=== PATIENT | female | born 1940 | race African-American/Black ===

== ENCOUNTER 2017-02-10 12:38 | Emergency (ER) | payer MEDICARE ==
[2017-02-10] MEDS ORDERED: NS 0.9% 1000 ML* 1,000 ML IV ONE (14:51)
[2017-02-10] MEDS ORDERED: HYDROcodone/ACETAMIN 5-325 MG* 1 TAB PO ONE ×2 (14:52→17:36)
--- NOTE | 2017-02-10 15:17 | RAD ---
INDICATION: Headaches COMPARISON: None TECHNIQUE: Noncontrast axial source images were acquired from the skull base to the vertex. FINDINGS: Ventricles/sulci: The ventricles and cisterns are normal in size and configuration for age. Brain parenchyma: There is no significant focal parenchymal finding, evidence of intracranial mass, or intracranial mass effect. Intracranial hemorrhage:None. Extra-axial spaces: There are no abnormal extra axial fluid collections or evidence of extra-axial mass. Calvarium: There is no calvarial fracture or other calvarial abnormality. Scalp: There is no evidence of scalp or extracalvarial soft tissue abnormality. Paranasal sinuses/mastoid: The paranasal sinuses and mastoid air cells are clear. Other: None. IMPRESSION: No acute intracranial findings.
[2017-02-10 15:34] LABS: Hematocrit 42 % (35-47); Hemoglobin 13.7 g/dl (12.0-16.0); Mean Corpuscular HGB Conc 33 g/dl (31-36); Mean Corpuscular Hemoglobin 26 pg (27-31); Mean Corpuscular Volume 79 fL (80-97); Mean Platelet Volume 10 um3 (7.4-10.4); Red Blood Count 5.32 10^6/ul (4.0-5.4); Red Cell Distribution Width 17 % (10.5-15); White Blood Count 9.4 10^3/ul (3.5-10.8)
[2017-02-10 15:49] LABS: Albumin 4.2 g/dL (3.2-5.2); BUN/Creatinine Ratio 18.3 (8-20); Calcium 9.2 mg/dL (8.6-10.3); EGFR African American 87.6 (>60); EGFR Non-African American 68.1 (>60); Globulin 3.2 g/dL (2-4); Total Bilirubin 0.6 mg/dL (0.2-1.0); Total Protein 7.4 g/dL (6.4-8.9)
[2017-02-10 16:11] LABS: Potassium 4.5 mmol/L (3.5-5.0)
[2017-02-10 16:20] LABS: Erythrocyte Sed Rate 24 mm/Hr (0-40)
[2017-02-10 17:44] LABS: Urine Bilirubin Negative (Negative); Urine Glucose Negative (Negative); Urine Nitrite Negative (Negative)
[2017-02-10 18:15] VITALS: BP 166/88
--- NOTE | 2017-02-11 12:27 | ED ---
Jose Hansen Alfonso, scribed for Michoacano Johnson MD on 02/10/17 at 1431 . Headache - HPI Summary HPI Summary: This patient is a 76 year old F presenting to [facility] with a chief complaint of a frontal headache since two weeks ago. The CC is described as throbbing. The patient rates the pain 9/10 in severity. Symptoms aggravated by nothing. Symptoms alleviated by nothing. Symptoms not alleviated by Tylenol. Patient reports sinus pressure, and lightheadedness. Patient denies fever, chills, photophobia, vision change, nausea, bowel symptoms. PMHx includes HTN, HLD, and COPD. - History Of Current Complaint Chief Complaint: EDHeadache Stated Complaint: HEADACHE FOR TWO WEEKS Time Seen by Provider: 02/10/17 14:10 Hx Obtained From: Patient Onset/Duration: Sudden Onset, Started weeks ago - 2, Still Present Currently Pain Is: Current Pain Scale(0-10)= - 9/10, Severe Character: Throbbing Aggravating Factor: Nothing Allevating Factors: Nothing Associated Signs And Symptoms: Other (Noted In Comments) - sinus pressure, and lightheadedness. Patient denies fever, chills, photophobia, vision change, nausea, bowel symptoms. - Allergies/Home Medications Allergies/Adverse Reactions: Allergies Allergy/AdvReac Type Severity Reaction Status Date / Time Ibuprofen Allergy Intermediate ITCHY HANDS Verified 04/06/16 12:36 PMH/Surg Hx/FS Hx/Imm Hx Cardiovascular History: Reports: Hx Hypertension Respiratory History: Reports: Hx Chronic Obstructive Pulmonary Disease (COPD) Sensory History: Reports: Hx Contacts or Glasses Denies: Hx Deafness Opthamlomology History: Reports: Hx Contacts or Glasses Denies: Hx Legally Blind - Immunization History Date of Tetanus Vaccine: PT STATES UNSURE Date of Influenza Vaccine: PT STATES UNSURE Infectious Disease History: No Infectious Disease History: Denies: Traveled Outside the [place] in Last 30 Days - Family History Known Family History: Positive: Hypertension - Social History Alcohol Use: Occasionally Hx Substance Use: No Substance Use Type: Reports: None Hx Tobacco Use: Yes Smoking Status (MU): Former Smoker Review of Systems Negative: Fever, Chills Positive: Other - Negative photophobia, vision change Positive: Other - sinus pressure Positive: Other - Negative bowel symptoms. Negative: Nausea Neurological: Other - lightheadedness Positive: Headache All Other Systems Reviewed And Are Negative: Yes Physical Exam Triage Information Reviewed: Yes Vital Signs On Initial Exam: Initial Vitals Temp Pulse Resp BP Pulse Ox 98.5 F 72 16 204/84 98 02/10/17 12:44 02/10/17 12:44 02/10/17 12:44 02/10/17 12:44 02/10/17 12:44 Vital Signs Reviewed: Yes Appearance: Positive: Well-Appearing, No Pain Distress Skin: Positive: Warm, Skin Color Reflects Adequate Perfusion, Dry Head/Face: Positive: Normal Head/Face Inspection, Other - Temples non tender Eyes: Positive: Other: - Fundus sharp. Anterior chambers clear. ENT: Positive: Normal ENT inspection, Other Neck: Positive: Supple, Nontender Respiratory/Lung Sounds: Positive: Clear to Auscultation, Breath Sounds Present Cardiovascular: Positive: RRR Abdomen Description: Positive: Nontender, Soft Bowel Sounds: Positive: Present Musculoskeletal: Positive: Normal Neurological: Positive: Normal, Sensory/Motor Intact, Alert, Oriented to Person Place, Time, CN Intact II-III Psychiatric: Positive: Affect/Mood Appropriate Diagnostics - Vital Signs Vital Signs Temp Pulse Resp BP Pulse Ox 02/10/17 13:51 97.7 F 67 17 180/86 96 02/10/17 12:44 98.5 F 72 16 204/84 98 - Laboratory Lab Results: Lab Results 02/10/17 02/10/17 02/10/17 Range/Units 15:23 15:23 15:23 WBC 9.4 (3.5-10.8) 10^3/ul RBC 5.32 (4.0-5.4) 10^6/ul Hgb 13.7 (12.0-16.0) g/dl Hct 42 (35-47) % MCV 79 L (80-97) fL MCH 26 L (27-31) pg MCHC 33 (31-36) g/dl RDW 17 H (10.5-15) % Plt Count 219 (150-450) 10^3/ul MPV 10 (7.4-10.4) um3 Neut % (Auto) 69.0 (38-83) % Lymph % (Auto) 18.2 L (25-47) % [place] % (Auto) 8.4 (1-9) % Eos % (Auto) 3.6 (0-6) % Baso % (Auto) 0.8 (0-2) % Absolute Neuts (auto) 6.5 (1.5-7.7) 10^3/ul Absolute Lymphs (auto) 1.7 (1.0-4.8) 10^3/ul Absolute Monos (auto) 0.8 (0-0.8) 10^3/ul Absolute Eos (auto) 0.3 (0-0.6) 10^3/ul Absolute Basos (auto) 0.1 (0-0.2) 10^3/ul Absolute Nucleated RBC 0 10^3/ul Nucleated RBC % 0 ESR 24 (0-40) mm/Hr INR (Anticoag Therapy) 0.97 (0.89-1.11) Sodium 138 (133-145) mmol/L Potassium 4.5 (3.5-5.0) mmol/L Chloride 105 (101-111) mmol/L Carbon Dioxide 28 (22-32) mmol/L Anion Gap 5 (2-11) mmol/L BUN 15 (6-24) mg/dL Creatinine 0.82 (0.51-0.95) mg/dL Est GFR ( Amer) 87.6 (>60) Est GFR (Non-Af Amer) 68.1 (>60) BUN/Creatinine Ratio 18.3 (8-20) Glucose 79 (70-100) mg/dL Lactic Acid (0.5-2.0) mmol/L Calcium 9.2 (8.6-10.3) mg/dL Total Bilirubin 0.60 (0.2-1.0) mg/dL AST 15 (13-39) U/L ALT 16 (7-52) U/L Alkaline Phosphatase 112 H (34-104) U/L Total Protein 7.4 (6.4-8.9) g/dL Albumin 4.2 (3.2-5.2) g/dL Globulin 3.2 (2-4) g/dL Albumin/Globulin Ratio 1.3 (1-3) Urine Color Urine Appearance Urine pH (5-9) Ur Specific [place] (1.010-1.030) Urine Protein (Negative) Urine Ketones (Negative) Urine Blood (Negative) Urine Nitrate (Negative) Urine Bilirubin (Negative) Urine Urobilinogen (Negative) Ur Leukocyte Esterase (Negative) Urine Glucose (Negative) 02/10/17 02/10/17 Range/Units 15:23 16:45 WBC (3.5-10.8) 10^3/ul RBC (4.0-5.4) 10^6/ul Hgb (12.0-16.0) g/dl Hct (35-47) % MCV (80-97) fL MCH (27-31) pg MCHC (31-36) g/dl RDW (10.5-15) % Plt Count (150-450) 10^3/ul MPV (7.4-10.4) um3 Neut % (Auto) (38-83) % Lymph % (Auto) (25-47) % [place] % (Auto) (1-9) % Eos % (Auto) (0-6) % Baso % (Auto) (0-2) % Absolute Neuts (auto) (1.5-7.7) 10^3/ul Absolute Lymphs (auto) (1.0-4.8) 10^3/ul Absolute Monos (auto) (0-0.8) 10^3/ul Absolute Eos (auto) (0-0.6) 10^3/ul Absolute Basos (auto) (0-0.2) 10^3/ul Absolute Nucleated RBC 10^3/ul Nucleated RBC % ESR (0-40) mm/Hr INR (Anticoag Therapy) (0.89-1.11) Sodium (133-145) mmol/L Potassium (3.5-5.0) mmol/L Chloride (101-111) mmol/L Carbon Dioxide (22-32) mmol/L Anion Gap (2-11) mmol/L BUN (6-24) mg/dL Creatinine (0.51-0.95) mg/dL Est GFR ( Amer) (>60) Est GFR (Non-Af Amer) (>60) BUN/Creatinine Ratio (8-20) Glucose (70-100) mg/dL Lactic Acid 0.8 (0.5-2.0) mmol/L Calcium (8.6-10.3) mg/dL Total Bilirubin (0.2-1.0) mg/dL AST (13-39) U/L ALT (7-52) U/L Alkaline Phosphatase (34-104) U/L Total Protein (6.4-8.9) g/dL Albumin (3.2-5.2) g/dL Globulin (2-4) g/dL Albumin/Globulin Ratio (1-3) Urine Color Straw Urine Appearance Clear Urine pH 7.0 (5-9) Ur Specific [place] 1.008 L (1.010-1.030) Urine Protein Negative (Negative) Urine Ketones Negative (Negative) Urine Blood Negative (Negative) Urine Nitrate Negative (Negative) Urine Bilirubin Negative (Negative) Urine Urobilinogen Negative (Negative) Ur Leukocyte Esterase Negative (Negative) Urine Glucose Negative (Negative) Result Diagrams: 02/10/17 15:23 02/10/17 15:23 Lab Statement: Any lab studies that have been ordered have been reviewed, and results considered in the medical decision making process. - CT Brain CT Interpretation Completed By: Radiologist - No acute intracranial findings. ED physician has reviewed this radiology report and agrees. Headache Course/Dx - Course Course Of Treatment: Ms. Ardon presented with several days of a mild frontal ROSA. She had no meningeal signs. Her W/U was unremarkable and her ROSA relieved. - Diagnoses Provider Diagnoses: Headache Discharge - Discharge Plan Condition: Stable Disposition: HOME Patient Education Materials: Acute Headache (ED) Referrals: Paul Sterling MD [Primary Care Provider] - 3 Days The documentation as recorded by the Jose villeda Alfonso accurately reflects the service I personally performed and the decisions made by Alex negrete Richard L, MD.
== END 2017-02-10 18:18 | disposition home or self-care (01) ==
LOC: ED 12:38
DX: R51 Headache (principal); I10 Essential (primary) hypertension; E78.5 Hyperlipidemia, unspecified; J44.9 Chronic obstructive pulmonary disease, unspecified; Z87.891 Personal history of nicotine dependence
CPT/HCPCS: 36415; 70450; 80053; 81003; 83605; 85025; 85610; 85652; 99282

== ENCOUNTER 2017-03-01 09:36 | Emergency (ER) | payer MEDICARE ==
[2017-03-01] MEDS ORDERED: Acetaminophen TAB* 325 MG PO ONE (13:15)
[2017-03-01 14:45] VITALS: BP 160/85
--- NOTE | 2017-03-03 12:01 | ED ---
Holger Hansen Benjamin, scribed for Michoacano Johnson MD on 03/01/17 at 1316 . Headache - HPI Summary HPI Summary: 76yo female BIBA for throbbing left sided ROSA and high measure blood pressure. ROSA started this morning around 3am. Pt was recently seen for similar symptoms and her BP was in 200 systolic at the time. Pt saw her PCP and and changed her BP meds this time. ROSA is now better but still present. - History Of Current Complaint Chief Complaint: EDHeadache Stated Complaint: HIGH BP/HEADACHE Time Seen by Provider: 03/01/17 12:44 Hx Obtained From: Patient Onset/Duration: Sudden Onset, Started hours ago - today at 3am, Still Present Initially Headache Was: Moderate Currently Pain Is: Mild Timing: Constant Character: Throbbing Location of Headache: Diffuse - left sided Aggravating Factor: Nothing Allevating Factors: Nothing Associated Signs And Symptoms: Negative - Allergies/Home Medications Allergies/Adverse Reactions: Allergies Allergy/AdvReac Type Severity Reaction Status Date / Time Ibuprofen Allergy Intermediate ITCHY HANDS Verified 03/01/17 11:16 PMH/Surg Hx/FS Hx/Imm Hx Cardiovascular History: Reports: Hx Hypertension Respiratory History: Reports: Hx Chronic Obstructive Pulmonary Disease (COPD) Sensory History: Reports: Hx Contacts or Glasses Denies: Hx Legally Blind, Hx Deafness Opthamlomology History: Reports: Hx Contacts or Glasses Denies: Hx Legally Blind - Immunization History Date of Tetanus Vaccine: PT STATES UNSURE Date of Influenza Vaccine: PT STATES UNSURE Infectious Disease History: No Infectious Disease History: Denies: Traveled Outside the [place] in Last 30 Days - Family History Known Family History: Positive: Hypertension - Social History Occupation: Retired Lives: Alone Alcohol Use: Occasionally Hx Substance Use: No Substance Use Type: Reports: None Hx Tobacco Use: Yes Smoking Status (MU): Former Smoker Review of Systems Constitutional: Negative Eyes: Negative ENT: Negative Cardiovascular: Negative Respiratory: Negative Gastrointestinal: Negative Genitourinary: Negative Musculoskeletal: Negative Skin: Negative Positive: Headache Psychological: Normal All Other Systems Reviewed And Are Negative: Yes Physical Exam Triage Information Reviewed: Yes Vital Signs On Initial Exam: Initial Vitals Temp Pulse Resp BP Pulse Ox 96.8 F 65 17 145/71 97 03/01/17 09:45 03/01/17 09:45 03/01/17 09:45 03/01/17 09:45 03/01/17 09:45 Vital Signs Reviewed: Yes Appearance: Positive: Well-Appearing, No Pain Distress, Well-Nourished Skin: Positive: Warm, Skin Color Reflects Adequate Perfusion, Dry Head/Face: Positive: Normal Head/Face Inspection Eyes: Positive: EOMI, DEVI ENT: Positive: Normal ENT inspection, Hearing grossly normal Neck: Positive: Supple, Nontender Respiratory/Lung Sounds: Positive: Clear to Auscultation, Breath Sounds Present Cardiovascular: Positive: RRR, Pulses are Symmetrical in both Upper and Lower Extremities Abdomen Description: Positive: Nontender, Soft Bowel Sounds: Positive: Present Musculoskeletal: Positive: Strength/ROM Intact Neurological: Positive: Sensory/Motor Intact, Alert, Oriented to Person Place, Time Psychiatric: Positive: Affect/Mood Appropriate Diagnostics - Vital Signs Vital Signs Temp Pulse Resp BP Pulse Ox 03/01/17 12:30 67 17 148/77 98 03/01/17 12:00 65 19 147/66 97 03/01/17 11:30 61 18 145/75 98 03/01/17 11:18 65 14 98 03/01/17 11:16 157/78 03/01/17 11:00 97.8 F 65 14 130/60 96 03/01/17 09:45 96.8 F 65 17 145/71 97 - Laboratory Lab Statement: Any lab studies that have been ordered have been reviewed, and results considered in the medical decision making process. Re-Evaluation - Re-Evaluation First Eval Re-Evaluation Time: 14:29 Comment: Discussed the follow up plans with the pt. Headache Course/Dx - Course Course Of Treatment: Reviewed pts list of medications and allergies. High blood pressure noted. Assessment/Plan: Ms. Ardon woke up this AM with a left sided ROSA which has gradually resolved. SHe didn't take her blood pressure thia AM but here it is slightly elevated. Her ROSA resolved with acetaminophen here and I recommended she F/U again with her PMD. An MRI or CTA could be considered but I think they milagros be low yield. - Diagnoses Provider Diagnoses: Headache Discharge - Discharge Plan Condition: Stable Disposition: HOME Patient Education Materials: Acute Headache (ED) Referrals: Chance Collins MD [Medical Doctor] - Paul Sterling MD [Primary Care Provider] - The documentation as recorded by the Holger villeda Benjamin accurately reflects the service I personally performed and the decisions made by me, Michoacano Johnson MD.
== END 2017-03-01 14:52 | disposition home or self-care (01) ==
LOC: ED 09:36
DX: R51 Headache (principal); Z86.79 Personal history of other diseases of the circulatory system; Z87.891 Personal history of nicotine dependence
CPT/HCPCS: 99282; A9270-GY

== ENCOUNTER 2018-11-06 14:44 | Observation (INO) | payer MEDICARE ==
[~2018-11-06 14:44] MED LIST: Apixaban* 5 MG TAB PO ONE
[2018-11-06 16:47] LABS: ABS Basophils 0.1 10^3/ul (0-0.2); ABS Eosinophils 0.3 10^3/ul (0-0.6); ABS Lymphocytes 1.6 10^3/ul (1.0-4.8); ABS Monocytes 0.9 10^3/ul (0-0.8); ABS Neutrophils 10.8 10^3/ul (1.5-7.7); Hematocrit 46 % (35-47); Hemoglobin 14.7 g/dL (12.0-16.0); Lymphocyte % 11.5 %; Mean Corpuscular HGB Conc 32 g/dL (31-36); Mean Corpuscular Hemoglobin 27 pg (27-31); Mean Corpuscular Volume 82 fL (80-97); Mean Platelet Volume 10.2 fL (7.4-10.4); Nucleated Red Blood Cells % 0.1; Platelet Count 213 10^3/uL (150-450); Red Blood Count 5.55 10^6 /uL (3.70-4.87); Red Cell Distribution Width 16 % (10.5-15); White Blood Count 13.7 10^3/uL (3.5-10.8)
[2018-11-06] MEDS ORDERED: Albuterol/Ipratropium NEB.SOL* Albuterol 2.5 MG/Ipratropium 0.5 MG 3 ML INH ONE (16:53)
[2018-11-06] MEDS ORDERED: methylPREDNISolone 125 MG* 2 ML VIAL IV ONE (16:54)
[2018-11-06] MEDS ORDERED: cefTRIAXone(*) 1 GM in NS 0.9% 50 ML* 50 ML IVPB ONE (16:54)
[2018-11-06] MEDS ORDERED: Azithromycin 500 mg/250 ml NS 500 MG/250 ML BAG IVPB ONE (16:55)
--- NOTE | 2018-11-06 16:56 | ED ---
Shortness of Breath - HPI Summary HPI Summary: This pt is a 78 y/o female presenting [facility] c/o increased SOB for the past few days. Pt reports she is unable to sleep at night lying flat secondary to SOB. She states her symptoms are worse at night when lying down and has to sleep in a recliner sitting up. Additionally notes feeling lightheaded and LE edema. Pt reports she was prescribed Lasix but has not started taking them yet. She reports a cough yesterday and the day before. Pt uses her inhaler at home once a day but does not have any relief. PMHx includes HTN, COPD, hypercholesterolemia. Denies hx of CHF, CA, DVT, PE. - History of Current Complaint Chief Complaint: EDShortnessOfBreath Time Seen by Provider: 11/06/18 16:25 Hx Obtained From: Patient Onset/Duration: Lasting Days, Still Present Timing: Constant Current Severity: Mild Dyspnea At: Rest Aggrevating Factors: Recumbent Position Alleviating Factors: Nothing Associated Signs & Symptoms: Cough (Nonproductive), Dizzy - Lightheaded, Edema - Allergy/Home Medications Allergies/Adverse Reactions: Allergies Allergy/AdvReac Type Severity Reaction Status Date / Time ibuprofen Allergy Itching Verified 11/06/18 16:13 Home Medications: Home Medications Aspirin TAB* 81 mg PO DAILY 11/06/18 [History Confirmed 11/06/18] Lipitor 10 MG* 10 mg PO DAILY 11/06/18 [History Confirmed 11/06/18] Lisinopril TAB* 20 mg PO DAILY 11/06/18 [History Confirmed 11/06/18] Metoprolol Tartrate TAB* 50 mg PO DAILY 11/06/18 [History Confirmed 11/06/18] Percocet 5/325 TAB* 325 mg PO Q6HR 11/06/18 [History Confirmed 11/06/18] PMH/Surg Hx/FS Hx/Imm Hx Endocrine/Hematology History: Denies: Hx Diabetes Cardiovascular History: Reports: Hx Hypercholesterolemia, Hx Hypertension Denies: Hx Congestive Heart Failure, Hx Deep Vein Thrombosis, Hx Myocardial Infarction Respiratory History: Reports: Hx Chronic Obstructive Pulmonary Disease (COPD) Denies: Hx Pulmonary Embolism Sensory History: Reports: Hx Contacts or Glasses Denies: Hx Legally Blind, Hx Deafness Opthamlomology History: Reports: Hx Contacts or Glasses Denies: Hx Legally Blind - Immunization History Date of Tetanus Vaccine: PT STATES UNSURE Date of Influenza Vaccine: PT STATES UNSURE Infectious Disease History: No Infectious Disease History: Denies: Traveled Outside the [place] in Last 30 Days - Family History Known Family History: Positive: Hypertension - Social History Alcohol Use: Occasionally Hx Substance Use: No Substance Use Type: Reports: None Hx Tobacco Use: Yes Smoking Status (MU): Former Smoker Review of Systems Negative: Fever Positive: Shortness Of Breath, Cough Positive: Edema - in LE Neurological: Other - POS: lightheaded All Other Systems Reviewed And Are Negative: Yes Physical Exam - Summary Physical Exam Summary: GENERAL: Patient is a well-developed and nourished female who is lying comfortable in the stretcher. Patient is not in any acute respiratory distress. HEAD AND FACE: Normocephalic EYES: PERRLA, EOMI x 2. EARS: Hearing grossly intact. MOUTH: Oropharynx within normal limits. NECK: Supple, trachea is midline, no adenopathy, no JVD, no carotid bruit. CHEST: Symmetric, no tenderness at palpation LUNGS: Clear to auscultation bilaterally. No wheezing or crackles. CVS: Regular rate and rhythm, S1 and S2 present, no murmurs or gallops appreciated. ABDOMEN: Soft, non-tender. Bowel sounds are normal. No abnormal abdominal pulsations. EXTREMITIES: Full ROM in all major joints, no cyanosis or clubbing. 1+ pitting edema in bilateral lower extremities. NEURO: Alert and oriented x 3. No acute neurological deficits. Speech is normal and follows commands. SKIN: Dry and warm Triage Information Reviewed: Yes Vital Signs On Initial Exam: Initial Vitals Temp Pulse Resp BP Pulse Ox 97.7 F 76 16 155/78 94 11/06/18 14:47 11/06/18 14:47 11/06/18 14:47 11/06/18 14:47 11/06/18 14:47 Vital Signs Reviewed: Yes Diagnostics - Vital Signs Vital Signs Temp Pulse Resp BP Pulse Ox 11/06/18 14:47 97.7 F 76 16 155/78 94 - Laboratory Lab Results: Lab Results 11/06/18 Range/Units 16:28 WBC 13.7 H (3.5-10.8) 10^3/uL RBC 5.55 H (3.70-4.87) 10^6 /uL Hgb 14.7 (12.0-16.0) g/dL Hct 46 (35-47) % MCV 82 (80-97) fL MCH 27 (27-31) pg MCHC 32 (31-36) g/dL RDW 16 H (10.5-15) % Plt Count 213 (150-450) 10^3/uL MPV 10.2 (7.4-10.4) fL Neut % (Auto) 79.2 % Lymph % (Auto) 11.5 % [place] % (Auto) 6.8 % Eos % (Auto) 2.0 % Baso % (Auto) 0.5 % Absolute Neuts (auto) 10.8 H (1.5-7.7) 10^3/ul Absolute Lymphs (auto) 1.6 (1.0-4.8) 10^3/ul Absolute Monos (auto) 0.9 H (0-0.8) 10^3/ul Absolute Eos (auto) 0.3 (0-0.6) 10^3/ul Absolute Basos (auto) 0.1 (0-0.2) 10^3/ul Absolute Nucleated RBC 0.0 10^3/ul Nucleated RBC % 0.1 Result Diagrams: 11/06/18 16:28 11/06/18 16:28 Lab Statement: Any lab studies that have been ordered have been reviewed, and results considered in the medical decision making process. - Radiology Chest XR Radiology Interpretation Completed By: Radiologist Summary of Radiographic Findings: IMPRESSION: Stigmata of obstructive lung disease. No acute pulmonary or cardiac process evident. Dr. Kwan has reviewed this report. - CT Chest CTA CT Interpretation Completed By: Radiologist Summary of CT Findings: IMPRESSION: 1. A filling defect is identified within the peripheral pulmonary arterial branch to the right lower lobe, and pulmonary embolism is suggested. There is poor enhancement of peripheral pulmonary arteries within the left lower lobe, which limits the evaluation for a peripheral pulmonary embolism. 2. Several lung nodules are visualized. See recommendations below. 3. Small hiatal hernia. 4. There is significant elevation of the left hemidiaphragm, with a low left lung volume. 5. Atelectatic changes are identified within the bilateral lung bases, with additional nonspecific groundglass density at the left lung base. 6. Additional findings described above. Dr. Kwan has reviewed this report. - EKG 15:53 Cardiac Rate: NL - at 70 bpm EKG Rhythm: Sinus Rhythm Summary of EKG Findings: RBBB. Left anterior fascicular block. Re-Evaluation - Re-Evaluation First Eval Re-Evaluation Time: 19:34 Comment: Updated the patient on her results. She is aware we are waiting for her chest CTA. Second Eval Re-Evaluation Time: 21:30 Comment: I reviewed the results with the pt and family. Course/Dx - Course Assessment/Plan: Pt is a 78 y/o female, with hx of COPD, HTN, hypercholesterolemia, presenting to [facility] c/o increased SOB for the past few days. Lab results remarkable for WBC of 13.7, D-dimer of 259. CTA chest was ordered. Chest XR is negative for an acute pulmonary or cardiac process evident. CTA chest is consistent with a PE. Case discussed with Dr. Carlton, hospitalist, who accepted the pt for admission. I discussed results with patient. The patient agrees with this plan. - Diagnoses Provider Diagnoses: Pulmonary embolism - Physician Notifications Discussed Care of Patient With: Isabella Carlton - hospitalist Time Discussed With Above Provider: 21:37 Instructed by Provider To: Admit As Inpatient - Critical Care Time Critical Care Time: 30-74 min Discharge - Sign-Out/Discharge Documenting (check all that apply): Patient Departure - Admit to [facility] Patient Received Moderate/Deep Sedation with Procedure: No - Discharge Plan Condition: Stable Disposition: ADMITTED TO [facility] Referrals: Paul Sterling MD [Primary Care Provider] - - Billing Disposition and Condition Condition: STABLE Disposition: Admitted to [facility] - Attestation Statements Document Initiated by Debbiee: Yes Documenting Scribe: Donna Sandoval Provider For Whom Hiren is Documenting (Include Credential): Janny Kwan MD Scribe Attestation: Tyrone, Donna Sandoval, scribed for Janny Kwan MD on 11/06/18 at 2144. Scribe Documentation Reviewed: Yes Provider Attestation: The documentation as recorded by the Donna villeda accurately reflects the service I personally performed and the decisions made by me, Janny Kwan MD Status of Scribe Document: Viewed
[2018-11-06] MEDS ORDERED: Furosemide IV* 10 MG/ML VIAL (40 MG) IV ONE (16:58)
[2018-11-06 17:02] LABS: Albumin 4.2 g/dL (3.2-5.2); Albumin/Globulin Ratio 1.4 (1-3); BUN/Creatinine Ratio 17.1 (8-20); Calcium 9.3 mg/dL (8.6-10.3); EGFR Non-African American 67.8 (>60); Globulin 2.9 g/dL (2-4); Potassium 3.9 mmol/L (3.5-5.0); Total Bilirubin 0.6 mg/dL (0.2-1.0); Total Protein 7.1 g/dL (6.4-8.9); Troponin I 0.01 ng/mL (<0.04)
[2018-11-06 18:13] LABS: INR 1.04 (0.82-1.09)
[2018-11-06] MEDS ORDERED: Iohexol 350* (CONTRAST) 500 ML MDV IV ONE (19:37)
[2018-11-06] MEDS ORDERED: Acetaminophen TAB* 325 MG PO PRN (23:11)
[2018-11-06] MEDS ORDERED: Al Hydrox/Mg Hydrox/Simet LIQ* 30 ML UDC PO PRN (23:11)
[2018-11-06] MEDS ORDERED: Ondansetron INJ* 2 MG/ML VIAL IV PRN (23:11)
[2018-11-06] MEDS ORDERED: oxyCODONE/Acetamin 5/325 MG* TAB PO PRN (23:15)
--- NOTE | 2018-11-07 01:56 | HP ---
CC: Paul Sterling MD * HISTORY AND PHYSICAL: DATE OF ADMISSION: 11/06/18 TIME OF EVALUATION: 2300 PRIMARY CARE PHYSICIAN: Paul Sterling MD CHIEF COMPLAINT: Shortness of breath. HISTORY OF PRESENT ILLNESS: This is a 78-year-old female with past medical history of COPD, on room air, who presents to the emergency room with shortness of breath for the past one and a half weeks. She states she has had a dry cough , having hard times sleeping on her left side, has been sleeping on a recliner. No chest pain. She also has noticed some right lower extremity swelling over the past month. No recent travel. She saw her primary about a week and a half ago, who gave her Lasix. She did not start taking it as she was hesitant to take it because she did not want to be peeing all the time. No fevers. No URI symptoms. No nausea, vomiting, or diarrhea. No abdominal pain. No urinary symptoms. Otherwise, review of systems is negative. In the emergency room, the patient had labs and imaging. She was noted to have a PE. She was started on Eliquis 10 mg. She was also given DuoNeb, azithromycin 500 mg, ceftriaxone 1 g, Lasix 40 mg, Solu-Medrol 125 mg and referred to the Hospitalist Service for further evaluation. PAST MEDICAL HISTORY: 1. COPD. 2. Hypertension. 3. Hyperlipidemia. 4. History of bilateral hip replacements, more than 5 years ago. MEDICATIONS: The patient is on a maintenance inhaler. She is not sure of the name. According to the med rec, her remaining meds are metoprolol tartrate 50 mg daily, lisinopril 20 mg daily, Lipitor 10 mg daily, aspirin 81 mg daily, Percocet 5/325 every 6 hours as needed. ALLERGIES: IBUPROFEN. FAMILY HISTORY: Mother from CVA at age 82. Father from an NE at age 72. Daughter had blood clots during her requiring injections. SOCIAL HISTORY: The patient lives alone. She is independent of her ADLs. She uses a rolling walker. She quit smoking about 15 years ago, was a pack per day x40 years. 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 Her daughter, Reba Tam, is her healthcare proxy. Code status is full code. REVIEW OF SYSTEMS: A 14-point review of systems as mentioned in the HPI, otherwise negative. PHYSICAL EXAMINATION GENERAL: In no acute distress. Resting comfortably with her daughter and son- in- law at the bedside. VITAL SIGNS: Temp is 97.7, pulse rate 85, respiratory rate is 18, oxygen saturation is 94% on room air, blood pressure 121/71. HEENT: Head normocephalic. Pupils are equal and reactive to light, anicteric. Oropharynx: Mucous membranes are moist. NECK: Supple. No lymphadenopathy. RESPIRATORY: Diminished breath sounds with bilateral rhonchi at the bases. CARDIAC: Regular rate and rhythm. Soft systolic murmur heard throughout. ABDOMEN: Soft, nontender, nondistended. EXTREMITIES: The patient with mild right lower extremity edema, +1 DPs. NEUROLOGIC: Alert and oriented x3. No gross focal neurologic deficits. DIAGNOSTIC STUDIES/LAB DATA: White count 13.7, hemoglobin 14.7, hematocrit 46 , platelets 213. INR is 1.04. D-dimer is 259. Sodium 140, potassium 3.9, chloride 109, bicarb 25, BUN 14, creatinine 0.82. Troponin 0.01. BNP is 55. Radiographic data: Chest CTA shows a filling defect identified within the peripheral pulmonary artery branch to the right lower lobe and pulmonary emboli that suggest that there is poor enhancement of peripheral pulmonary arteries in the left lower lobe which limits the evaluation of peripheral pulmonary embolism. Several lung nodules are visualized, for which, as an outpatient, she will have a CT scan followup in 12 months. Significant elevation of the left hemidiaphragm, atelectatic changes are identified within the bilateral lung bases and additional nonspecific ground-glass densities at the left lung base. Chest x-ray; stigmata of COPD, no acute pulmonary or cardiac process. EKG shows normal sinus rhythm. ASSESSMENT: This is a 78-year-old female with past medical history of chronic obstructive pulmonary disease, on room air, who presents to the emergency room with shortness of breath and right lower extremity swelling. Findings were consistent with small peripheral pulmonary emboli. 1. Pulmonary emboli. Assessment: The patient with right lower extremity swelling, likely a DVT present. No specific provoked event. She does have a family history of blood clots in her family. She was started on Eliquis in the emergency room. We will continue this at 10 mg p.o. b.i.d. x7 days and then 5 mg b.i.d. We will order a Doppler of her right lower extremity. No indication for an echocardiogram. Her vitals are stable. She is on room air and no elevated troponin. Regarding her CT scan with a nodule, she was recommended to follow up with CAT scan as an outpatient in 12 months. Recommend outpatient evaluation with hematology to determine duration of anticoagulation and if she needs further hypercoaguable work up. 2. Chronic medical problem, chronic obstructive pulmonary disease. Need to get a med rec to get what inhaler she was taking at home as it is not her on med rec and resume her home medications as prescribed according to med rec, but concerned about the accuracy of it. 3. FEN. Regular diet. 4. DVT prophylaxis. The patient scores high risk. She is on Eliquis. 5. Code status: Full code. PATIENT TIME: Greater than 40 minutes was spent doing the history and physical , more than half the time was direct patient contact and critical care time. [id number]/[facility] #: [id number] SAYRA
[2018-11-07 08:12] VITALS: BP 154/82
[2018-11-07] MEDS ORDERED: Aspirin 81 mg CHEW TAB* 81 MG TAB.CHEW PO SCH (09:00)
[2018-11-07] MEDS ORDERED: Lisinopril TAB* 10 MG PO SCH (09:00)
[2018-11-07] MEDS ORDERED: Metoprolol Succinate XL TAB* 25 MG PO SCH (09:00)
[2018-11-07] MEDS ORDERED: Apixaban* 5 MG TAB PO SCH (11:00)
[2018-11-07] MEDS ORDERED: Atorvastatin* 10 MG TAB PO SCH (17:00)
--- NOTE | 2018-11-08 01:32 | DS ---
CC: Dr. Paul Sterling; Dr. Nano Marin * DISCHARGE SUMMARY: DATE OF ADMISSION: 11/06/18 DATE OF DISCHARGE: 11/07/18 PRIMARY CARE PROVIDER: Dr. Paul Sterling ATTENDING PHYSICIAN: Dr. Minoo King * (dictated by Radha Esparza NP). PRIMARY DIAGNOSES: 1. Pulmonary embolism, no known provoking factors. 2. Lung nodule noted on CTA. SECONDARY DIAGNOSES: 1. Chronic obstructive pulmonary disease. 2. Hypertension. 3. Hyperlipidemia. STUDIES WHILE IN THE HOSPITAL: 1. Chest x-ray on 11/06/18 reads as stigmata of obstructive lung disease. No acute pulmonary or cardiac process evident. 2. EKG on 11/06/18 shows normal sinus rhythm with a rate of 70, QTc 459, right bundle-branch block. This EKG is consistent with previous EKG on file from 2014. 3. Chest, thorax CTA on 11/06/18 reads as a filling defect was identified within the peripheral pulmonary arterial branch to the right lower lobe and pulmonary embolism is suggested. There is poor enhancement of peripheral pulmonary arteries within the left lower lobe, which limits the evaluation for a peripheral pulmonary embolism. Several lung nodules are visualized. See recommendations below. Small hiatal hernia. There is significant elevation of the left hemidiaphragm with a low left lung volume. Atelectatic changes are identified within the bilateral lung bases with additional nonspecific ground- glass density at the left lung base. Additional findings described in the body of the report. For patients at low risk (minimal or absent history of smoking history and other known risk factors), no routine followup. For patients at high risk (history of smoking or other known risk factors), recommend optional CT at 12 months. Right lower extremity ultrasound on 11/06/18 reads as no evidence of deep vein thrombosis from the right common femoral to the popliteal veins. Additional findings described in the body of the report. HISTORY OF PRESENT ILLNESS AND HOSPITAL COURSE: Ms. Ardon is a 78-year-old female with past medical history of COPD, hypertension, and hyperlipidemia, who presented to the emergency room on 11/06/18 with complaints of shortness of breath. Please see the history and physical by Dr. Carlton for complete summary of the events leading up to this hospitalization. In short, the patient does have a history of COPD, though in the past week and a half developed worsening shortness of breath and did notice some right lower extremity edema. She had no recent travel. In the emergency room, she had imaging as noted above and was found to have a pulmonary embolism. She was started on Eliquis. She was additionally given a dose of azithromycin, ceftriaxone, furosemide, and Solu- Medrol. She had labs, which were remarkable for a mild leukocytosis with a blood count of 13.7 and an elevated D- dimer consistent with diagnosis of PE. Vital signs were stable and she was saturating well on room air. Because of the finding of new PE, she was admitted by the hospitalist service. The patient had a and was monitored on telemetry. She did not have any evidence of arrhythmias. Vitals have remained stable and she has not required any oxygen to maintain saturations. She has been up ambulating without shortness of breath or chest pain. Troponin was noted to be negative. At this point, the patient's respiratory status is stable. On exam, she has no neurological deficits. Her heart has irregular rate and rhythm without murmurs, rubs, or gallops. Lung sounds are diminished, but clear to auscultation without rhonchi, wheezes, or rubs. There is mild nonpitting edema to the bilateral lower extremities, the right worse than the left. Physical exam is otherwise benign. Ms. Ardon is stable for discharge today. Vital signs are as follows: Temp 97.6, heart rate 77, respiratory rate 20, oxygen saturation 98% on room air, blood pressure 164/82. DISCHARGE MEDICATIONS: New medications: 1. Albuterol MDI 2 puffs q.4 hours p.r.n. shortness of breath, wheezing. 2. Eliquis 10 mg p.o. b.i.d. for 6 more days, then 5 mg b.i.d. Continued medications: 1. Lipitor 10 mg p.o. daily. 2. Lisinopril 20 mg p.o. daily. 3. Metoprolol tartrate 50 mg p.o. daily. 4. Percocet 5/325 one tab p.o. q.6 hours p.r.n. pain. 5. Incruse Ellipta one puff daily. DISCHARGE PLAN: Ms. Ardon will be discharged home. Activity will be as tolerated though she has been advised to resume her usual activity slowly. Diet will be regular as tolerated. Medications are noted above. The patient will need to take 10 mg b.i.d. of Eliquis for an additional 6 days and then can transition to 5 mg b.i.d. The patient additionally did report that she had been using her Incruse Ellipta when she felt short of breath and she did not have any rescue inhalers, so I have sent a new prescription for an albuterol MDI. She can continue her other usual medication as noted above. I will note that there are no obvious provoking factors for this PE, likely recommended the patient should remain on lifelong anticoagulation, though I will ultimately leave this decision up to her primary care provider. Due to the small pulmonary emboli and clinical presentation, no further workup was considered necessary at this point, although she may need further outpatient workup. She as noted above was found to have multiple lung nodules and the presence of the lung nodules in combination with a new PE are concerning for possible malignancy , especially considering the patient's smoking history. It is highly recommended that she follow up with [facility] Pulmonology and she may follow up with the guidelines recommended repeat CT at 12 months, though she will likely need earlier workup. She may additionally benefit from an echocardiogram on a nonemergent basis to assess cardiac function. She will need to follow up with her primary care provider in 4 to 7 days and again should follow up with Pulmonology for further workup of the lung nodule. She has been advised to return to the emergency room or nearest hospital for any worsening of symptoms, shortness of breath, lightheadedness, dizziness, chest discomfort, high fevers, chills, night sweats, loss of consciousness, or any other worrisome signs or symptoms. DISCHARGE CONDITION: Stable. DISCHARGE DISPOSITION: Home. This is a summarized report of a complex medical history and hospital stay. For further details, please see the entire medical record. TIME SPENT: Approximately 50 minutes was spent on this discharge. RADHA ESPARZA NP [id number]/[facility] #: [id number] SAYRA
== END 2018-11-07 14:40 | disposition home or self-care (01) ==
LOC: ED 14:44 → MEDTELE 23:11
PROVIDERS: ADMIT Pediatrics; ATTEND Internal Medicine
DX: I26.99 Other pulmonary embolism without acute cor pulmonale (principal); R91.1 Solitary pulmonary nodule; J44.9 Chronic obstructive pulmonary disease, unspecified; I10 Essential (primary) hypertension; E78.5 Hyperlipidemia, unspecified; Z79.01 Long term (current) use of anticoagulants; Z79.82 Long term (current) use of aspirin; R05 Cough; R42 Dizziness and giddiness; R60.9 Edema, unspecified; E78.00 Pure hypercholesterolemia, unspecified; Z87.891 Personal history of nicotine dependence
CPT/HCPCS: 36415; 71046; 71275; 80053; 83605; 83880; 84484; 85025; 85379; 85610; 85730; 93005; 96365; 96375; 99284; A9270-GY; G0378; J0456; J0696; J1940; J2930; Q9967

== ENCOUNTER 2021-04-14 15:21 | Inpatient (IN) ==
[2021-04-14] MEDS ORDERED: Atropine 1 MG/ML INJ 1 ML VIAL IV PUSH ONE (15:37)
[2021-04-14] MEDS ORDERED: Lactated Ringers 1000 ml BAG 1,000 ML IV SCH (16:00)
[2021-04-14 16:17] LABS: ABS Basophils 0.1 10^3/ul (0-0.2); ABS Eosinophils 0.2 10^3/ul (0-0.6); ABS Lymphocytes 1.9 10^3/ul (1.0-4.8); ABS Monocytes 0.8 10^3/ul (0-0.8); ABS Neutrophils 7.1 10^3/ul (1.5-7.7); Eosinophil % 2.4 %; Hematocrit 40 % (35-47); Lymphocyte % 18.8 %; Mean Corpuscular HGB Conc 33 g/dL (31-36); Mean Corpuscular Hemoglobin 26 pg (27-31); Mean Corpuscular Volume 80 fL (80-97); Mean Platelet Volume 10.9 fL (7.4-10.4); Platelet Count 239 10^3/uL (150-450); Red Blood Count 4.99 10^6 /uL (3.70-4.87); Red Cell Distribution Width 16 % (10-15); White Blood Count 10.2 10^3/uL (3.5-10.8)
[2021-04-14 16:25] LABS: Urine Appearance Clear; Urine Bilirubin Negative (Negative); Urine Blood Negative (Negative); Urine Color Yellow; Urine Glucose Negative (Negative); Urine Ketones Negative (Negative); Urine Nitrite Negative (Negative); Urine Protein Negative (Negative); Urine Specific Gravity 1.008 (1.002-1.030); Urine Urobilinogen Negative (Negative)
[2021-04-14 16:33] LABS: Albumin 3.7 g/dL (3.2-5.2); Albumin/Globulin Ratio 1.4 (1-3); Calcium 8.4 mg/dL (8.6-10.3); Globulin 2.6 g/dL (2-4); Magnesium 2.1 mg/dL (1.9-2.7); Potassium 3.9 mmol/L (3.5-5.0); Total Bilirubin 0.6 mg/dL (0.2-1.0); Total Protein 6.3 g/dL (6.4-8.9)
[2021-04-14 16:34] LABS: Troponin I 0.01 ng/mL (<0.03)
[2021-04-14] MEDS ORDERED: Midazolam 5 mg/5 ml VIAL 1 mg/ml 5 ml VIAL (5 mg) ONE (16:46)
[2021-04-14] MEDS ORDERED: Heparin 2 UNITS/ML 1000 mls 1,000 ML IV ONE (16:46)
[2021-04-14] MEDS ORDERED: Lidocaine 1% VIAL 10 MG/ML VIAL ONE ×2 (16:46→18:20)
[2021-04-14] MEDS ORDERED: fentaNYL 100 mcg/2 ml 50 MCG/ML VIAL ONE (16:46)
[2021-04-14 17:06] LABS: TSH Ultra Thyroid Stim Horm 2.73 mcIU/mL (0.34-5.60)
[2021-04-14 17:26] LABS: Urine Appearance Clear; Urine Bilirubin Negative (Negative); Urine Blood 1+ (Negative); Urine Color Straw; Urine Glucose Negative (Negative); Urine Ketones Negative (Negative); Urine Nitrite Negative (Negative); Urine Protein Negative (Negative); Urine Specific Gravity 1.004 (1.002-1.030); Urine Urobilinogen Negative (Negative)
[2021-04-14] MEDS ORDERED: Iohexol 300 (CONTRAST) 10 ML SDV ONE ×2 (17:26→17:49)
[2021-04-14 17:33] LABS: Urine Bacteria 1+ (Absent); Urine Red Blood Cell Trace(0-2/hpf) (Absent); Urine Squamous Epithelial Cell Present (Absent); Urine White Blood Cell Trace(0-5/hpf) (Absent)
[2021-04-14] MEDS ORDERED: Albuterol HFA INHALER 8 gm MDI INH PRN (17:35)
[2021-04-14 17:42] LABS: Rapid COVID-19 Molecular Undetected (Undetected)
[2021-04-14] MEDS ORDERED: diPHENhydraMINE IV 50 MG/ML 1 ml VIAL (BENADRYL) ONE (18:34)
[2021-04-15 04:20] LABS: ABS Basophils 0.1 10^3/ul (0-0.2); ABS Eosinophils 0.2 10^3/ul (0-0.6); ABS Lymphocytes 1.2 10^3/ul (1.0-4.8); ABS Monocytes 0.8 10^3/ul (0-0.8); ABS Neutrophils 8.3 10^3/ul (1.5-7.7); Eosinophil % 1.6 %; Hematocrit 39 % (35-47); Mean Corpuscular HGB Conc 33 g/dL (31-36); Mean Corpuscular Hemoglobin 26 pg (27-31); Mean Corpuscular Volume 79 fL (80-97); Mean Platelet Volume 10.1 fL (7.4-10.4); Platelet Count 190 10^3/uL (150-450); Red Blood Count 5.02 10^6 /uL (3.70-4.87); Red Cell Distribution Width 16 % (10-15); White Blood Count 10.6 10^3/uL (3.5-10.8)
[2021-04-15 04:37] LABS: Albumin 3.8 g/dL (3.2-5.2); Albumin/Globulin Ratio 1.5 (1-3); Calcium 8.8 mg/dL (8.6-10.3); Globulin 2.6 g/dL (2-4); Magnesium 2.2 mg/dL (1.9-2.7); Phosphorus 3.6 mg/dL (2.5-5.0); Potassium 4.1 mmol/L (3.5-5.0); Total Bilirubin 0.5 mg/dL (0.2-1.0); Total Protein 6.4 g/dL (6.4-8.9)
[2021-04-15] MEDS ORDERED: ceFAZolin 2 GM in NS PREMIX 2 GM/100 ML BAG IVPB ONE (08:00)
[2021-04-15] MEDS: hydrALAZINE 20 mg/ml 1 ML Vial IV IV SLOW PU PRN ×2 (11:30→20:37)
[2021-04-15] MEDS: NS 0.9% 1000 ml BAG 1,000 ML IV SCH ×2 (12:17→23:02)
[2021-04-15] MEDS ORDERED: ceFAZolin VIAL 1 GM in NS 0.9% 50 ML 50 ML IVPB ONE (14:19)
[2021-04-15] MEDS ORDERED: Midazolam 5 mg/5 ml VIAL 1 mg/ml 5 ml VIAL (5 mg) ONE ×2 (14:43→15:19)
[2021-04-15] MEDS ORDERED: Lidocaine 1% VIAL 10 MG/ML VIAL ONE ×2 (14:43→15:04)
[2021-04-15] MEDS ORDERED: fentaNYL 100 mcg/2 ml 50 MCG/ML VIAL ONE (14:43)
[2021-04-15] MEDS ORDERED: ceFAZolin VIAL 1 GM in NS *SYRINGE* 10 ML IVPB ONE (15:00)
[2021-04-15] MEDS ORDERED: Ondansetron 4 mg VIAL 2 MG/ML 2 ml VIAL IV PRN (18:12)
[2021-04-15] MEDS ORDERED: Ondansetron 4 mg VIAL 2 MG/ML 2 ml VIAL ONE (18:18)
[2021-04-15] MEDS: ceFAZolin 1 GM ADVAN 1 GM in NS 0.9% 50 ML 50 ML IVPB SCH (23:00)
[2021-04-16] MEDS: hydrALAZINE 20 mg/ml 1 ML Vial IV IV SLOW PU PRN ×2 (04:03→06:04)
[2021-04-16 04:21] LABS: ABS Basophils 0.1 10^3/ul (0-0.2); ABS Lymphocytes 1.2 10^3/ul (1.0-4.8); ABS Neutrophils 9.1 10^3/ul (1.5-7.7); Eosinophil % 0.2 %; Hematocrit 39 % (35-47); Hemoglobin 12.7 g/dL (12.0-16.0); Lymphocyte % 10.8 %; Mean Corpuscular HGB Conc 32 g/dL (31-36); Mean Corpuscular Hemoglobin 26 pg (27-31); Mean Corpuscular Volume 79 fL (80-97); Mean Platelet Volume 10.1 fL (7.4-10.4); Platelet Count 173 10^3/uL (150-450); Red Blood Count 4.95 10^6 /uL (3.70-4.87); Red Cell Distribution Width 16 % (10-15); White Blood Count 11.4 10^3/uL (3.5-10.8)
[2021-04-16 04:33] LABS: Calcium 8.5 mg/dL (8.6-10.3); Phosphorus 3.3 mg/dL (2.5-5.0)
[2021-04-16] MEDS: ceFAZolin 1 GM ADVAN 1 GM in NS 0.9% 50 ML 50 ML IVPB SCH ×2 (07:30→15:30)
[2021-04-17 04:51] LABS: ABS Eosinophils 0.1 10^3/ul (0-0.6); ABS Lymphocytes 1.7 10^3/ul (1.0-4.8); ABS Monocytes 1.2 10^3/ul (0-0.8); ABS Neutrophils 7.1 10^3/ul (1.5-7.7); Eosinophil % 1.2 %; Hematocrit 38 % (35-47); Hemoglobin 12.4 g/dL (12.0-16.0); Mean Corpuscular HGB Conc 32 g/dL (31-36); Mean Corpuscular Hemoglobin 26 pg (27-31); Mean Corpuscular Volume 80 fL (80-97); Mean Platelet Volume 9.9 fL (7.4-10.4); Nucleated Red Blood Cells % 0.1; Platelet Count 142 10^3/uL (150-450); Red Cell Distribution Width 16 % (10-15); White Blood Count 10.3 10^3/uL (3.5-10.8)
[2021-04-17 05:10] LABS: Calcium 8.3 mg/dL (8.6-10.3); Magnesium 2.2 mg/dL (1.9-2.7)
[2021-04-17] MEDS ORDERED: Albuterol/Ipratropium NEB.SOL (2.5/0.5 MG) 3 ML NEB.SOLN INH PRN (10:04)
[2021-04-17] MEDS ORDERED: SPIRIVA Respimat (tiotropium) 2.5 mcg/inh Inhaler INH SCH (11:00)
[2021-04-17] MEDS ORDERED: Umeclidinium 62.5 MDI(NF) MDI INH SCH (11:00)
[2021-04-17 17:54] VITALS: BP 109/63
== END 2021-04-17 17:55 | disposition home or self-care (01) | DRG 244 ==
LOC: ED 15:21 → EDHOLD 16:59 → CHICATH 17:06 → ICU 17:27

== ENCOUNTER 2022-03-17 11:12 | Inpatient (IN) ==
[2022-03-17] MEDS ORDERED: Iodixanol (CONTRAST) 320 MG/ML 100 ML SDV IV ONE (11:34)
[2022-03-17] MEDS ORDERED: Lactated Ringers 1000 ml BAG 1,000 ML IV ONE (11:46)
[2022-03-17] MEDS ORDERED: Acetaminophen IV 1 GM/100ML 1,000 MG/100 ML BAG IV ONE (12:00)
[2022-03-17 13:20] LABS: ABS Basophils 0.1 10^3/ul (0-0.2); ABS Eosinophils 0.1 10^3/ul (0-0.6); ABS Lymphocytes 1.6 10^3/ul (1.0-4.8); ABS Monocytes 0.8 10^3/ul (0-0.8); ABS Neutrophils 6.8 10^3/ul (1.5-7.7); Eosinophil % 1.2 %; Hematocrit 42 % (35-47); Hemoglobin 13.3 g/dL (12.0-16.0); Lymphocyte % 17.3 %; Mean Corpuscular HGB Conc 32 g/dL (31-36); Mean Corpuscular Hemoglobin 25 pg (27-31); Mean Corpuscular Volume 79 fL (80-97); Mean Platelet Volume 10.2 fL (7.4-10.4); Nucleated Red Blood Cells % 0.2; Platelet Count 187 10^3/uL (150-450); Red Cell Distribution Width 17 % (10-15); White Blood Count 9.4 10^3/uL (3.5-10.8)
[2022-03-17 13:45] LABS: Albumin 3.7 g/dL (3.2-5.2); Calcium 8.5 mg/dL (8.6-10.3); Potassium 4.6 mmol/L (3.5-5.0); Total Bilirubin 0.6 mg/dL (0.2-1.0)
[2022-03-17 14:02] LABS: Albumin/Globulin Ratio 1.6 (1-3); Globulin 2.3 g/dL (2-4); HDL Cholesterol 46.5 mg/dL; eGFR CKD-EPI 67.7 (>60)
[2022-03-17 14:10] LABS: Urine Appearance Clear; Urine Bilirubin Negative (Negative); Urine Blood Negative (Negative); Urine Color Yellow; Urine Glucose Negative (Negative); Urine Ketones Negative (Negative); Urine Nitrite Negative (Negative); Urine Protein Negative (Negative); Urine Specific Gravity 1.015 (1.005-1.030); Urine Urobilinogen 0.2 (Negative) (Negative)
[2022-03-17] MEDS ORDERED: Ondansetron 4 mg VIAL 2 MG/ML 2 ml VIAL IV PRN (14:36)
[2022-03-17] MEDS ORDERED: Albuterol HFA INHALER 8 gm MDI INH PRN (14:42)
[2022-03-17 14:47] LABS: Activated Partial Thrombo Time 30.2 seconds (26.0-38.0); INR 1.15 (0.89-1.11)
[2022-03-17] MEDS ORDERED: Morphine 2 MG/ML SYRINGE IV ONE (14:48)
[2022-03-17 15:02] LABS: Erythrocyte Sed Rate 16 mm/Hr (0-29)
[2022-03-17] MEDS ORDERED: Iohexol 350 (CONTRAST) 500 ML MDV IV ONE (15:40)
[2022-03-17] MEDS: oxyCODONE/Acetamin 5/325 mg TAB PO PRN (17:20)
[2022-03-17] MEDS: Nystatin TOP POWDER 15 GM BTL TOPICAL SCH (23:10)
[2022-03-18 01:19] LABS: Urine Bacteria Absent (Absent); Urine Red Blood Cell Trace(0-2/hpf) (Absent); Urine Squamous Epithelial Cell Present (Absent); Urine White Blood Cell Trace(0-5/hpf) (Absent)
[2022-03-18 06:37] LABS: ABS Eosinophils 0.2 10^3/ul (0-0.6); ABS Lymphocytes 1.1 10^3/ul (1.0-4.8); ABS Monocytes 0.7 10^3/ul (0-0.8); ABS Neutrophils 6.1 10^3/ul (1.5-7.7); Eosinophil % 2.2 %; Hematocrit 41 % (35-47); Hemoglobin 13.1 g/dL (12.0-16.0); Lymphocyte % 13.6 %; Mean Corpuscular HGB Conc 32 g/dL (31-36); Mean Corpuscular Hemoglobin 25 pg (27-31); Mean Corpuscular Volume 79 fL (80-97); Mean Platelet Volume 9.9 fL (7.4-10.4); Nucleated Red Blood Cells % 0.1; Platelet Count 184 10^3/uL (150-450); Red Blood Count 5.25 10^6 /uL (3.70-4.87); Red Cell Distribution Width 17 % (10-15); White Blood Count 8.1 10^3/uL (3.5-10.8)
[2022-03-18 07:03] LABS: Magnesium 1.9 mg/dL (1.9-2.7); Potassium 4.3 mmol/L (3.5-5.0); eGFR CKD-EPI 72.7 (>60)
[2022-03-18 08:55] LABS: C Reactive Protein 9.98 mg/L (<8.01)
[2022-03-18] MEDS: SPIRIVA Respimat (tiotropium) 2.5 mcg/inh Inhaler INH SCH (09:24)
[2022-03-18] MEDS: Aspirin EC 81 mg TAB.EC (enteric coated) PO SCH (09:44)
[2022-03-18] MEDS: PTO: Mirabegron 25 mg ER TAB (NF) PO SCH (09:46)
[2022-03-18] MEDS: Fluticasone NASAL SPRAY 50MCG 16 gm SPRAY BTL INTRANASAL SCH (09:46)
[2022-03-18] MEDS: Nystatin TOP POWDER 15 GM BTL TOPICAL SCH ×2 (09:54→19:23)
[2022-03-18] MEDS: oxyCODONE/Acetamin 5/325 mg TAB PO PRN (12:46)
[2022-03-18] MEDS ORDERED: Lactated Ringers 1000 ml BAG 1,000 ML IV ONE (13:00)
[2022-03-19] MEDS: SPIRIVA Respimat (tiotropium) 2.5 mcg/inh Inhaler INH SCH (07:30)
[2022-03-19 07:34] LABS: ABS Eosinophils 0.2 10^3/ul (0-0.6); ABS Lymphocytes 1.3 10^3/ul (1.0-4.8); ABS Monocytes 0.8 10^3/ul (0-0.8); ABS Neutrophils 5.8 10^3/ul (1.5-7.7); Eosinophil % 2.3 %; Hematocrit 40 % (35-47); Hemoglobin 12.8 g/dL (12.0-16.0); Mean Corpuscular HGB Conc 32 g/dL (31-36); Mean Corpuscular Hemoglobin 25 pg (27-31); Mean Corpuscular Volume 79 fL (80-97); Platelet Count 180 10^3/uL (150-450); Red Blood Count 5.07 10^6 /uL (3.70-4.87); Red Cell Distribution Width 17 % (10-15); White Blood Count 8.1 10^3/uL (3.5-10.8)
[2022-03-19 08:24] LABS: Calcium 8.8 mg/dL (8.6-10.3); Potassium 4.4 mmol/L (3.5-5.0); eGFR CKD-EPI 73.8 (>60)
[2022-03-19] MEDS ORDERED: Influenza vaccine *QUAD* *2022-23* 0.5 ML SYRINGE IM ONE (09:00)
[2022-03-19] MEDS: Aspirin EC 81 mg TAB.EC (enteric coated) PO SCH (09:22)
[2022-03-19] MEDS: Fluticasone NASAL SPRAY 50MCG 16 gm SPRAY BTL INTRANASAL SCH (09:23)
[2022-03-19] MEDS: Nystatin TOP POWDER 15 GM BTL TOPICAL SCH ×2 (09:23→20:42)
[2022-03-19] MEDS: PTO: Mirabegron 25 mg ER TAB (NF) PO SCH (09:23)
[2022-03-19] MEDS: oxyCODONE/Acetamin 5/325 mg TAB PO PRN (12:43)
[2022-03-20] MEDS: SPIRIVA Respimat (tiotropium) 2.5 mcg/inh Inhaler INH SCH (08:58)
[2022-03-20] MEDS: Nystatin TOP POWDER 15 GM BTL TOPICAL SCH ×2 (10:35→21:13)
[2022-03-20] MEDS: Fluticasone NASAL SPRAY 50MCG 16 gm SPRAY BTL INTRANASAL SCH (10:35)
[2022-03-20] MEDS: Aspirin EC 81 mg TAB.EC (enteric coated) PO SCH (10:35)
[2022-03-20] MEDS: PTO: Mirabegron 25 mg ER TAB (NF) PO SCH (10:36)
[2022-03-21] MEDS: SPIRIVA Respimat (tiotropium) 2.5 mcg/inh Inhaler INH SCH (07:42)
[2022-03-21] MEDS: Fluticasone NASAL SPRAY 50MCG 16 gm SPRAY BTL INTRANASAL SCH (09:42)
[2022-03-21] MEDS: Aspirin EC 81 mg TAB.EC (enteric coated) PO SCH (09:43)
[2022-03-21] MEDS: Nystatin TOP POWDER 15 GM BTL TOPICAL SCH (09:44)
[2022-03-21] MEDS: PTO: Mirabegron 25 mg ER TAB (NF) PO SCH (09:44)
[2022-03-21 18:07] VITALS: BP 157/84
== END 2022-03-21 17:45 | disposition home health service (06) | DRG 65 ==
LOC: ED 11:12 → MEDTELE 11:15 → EDHOLD 14:37 → SUATTDRO 14:37 → MEDTELE 21:08
PROVIDERS: ADMIT Hospitalist; ATTEND Internal Medicine

== ENCOUNTER 2023-11-11 19:31 | Inpatient (IN) ==
[2023-11-11] MEDS ORDERED: Piperacillin/Tazobac 3.375 BAG 3.375 GM/100 ML BAG IV ONE ×2 (20:01→20:03)
[2023-11-11] MEDS: Piperacillin/Tazobac 3.375 BAG 3.375 GM/100 ML BAG IV ONE (20:05)
[2023-11-11 20:12] LABS: Activated Partial Thrombo Time 30.7 seconds (26.0-38.0); INR 2.14 (0.83-1.13)
[2023-11-11 20:19] LABS: ALT 8 U/L (7-52); Albumin 3.4 g/dL (3.2-5.2); Albumin/Globulin Ratio 1.7 (1-3); Alkaline Phosphatase 62 U/L (35-149); Blood Urea Nitrogen 67 mg/dL (6-24); C Reactive Protein 34.07 mg/L (<8.01); CO2 Carbon Dioxide 24 mmol/L (22-32); Calcium 8.5 mg/dL (8.6-10.3); Chloride 108 mmol/L (101-111); Creatine Kinase 69 U/L (10-223); Creatinine, Serum 2.36 mg/dL (0.51-0.95); Glucose 113 mg/dL (70-100); Sodium 140 mmol/L (135-145); Total Bilirubin 0.5 mg/dL (0.2-1.0); Total Protein 5.4 g/dL (6.4-8.9); eGFR CKD-EPI 20.2 (>60)
[2023-11-11 20:31] LABS: High Sens Troponin Baseline 13 pg/mL (<15)
[2023-11-11] MEDS: Lactated Ringers SEPSIS* BAG 1,640 ML IV ONE (20:38)
[2023-11-11 20:46] LABS: Hematocrit 19.6 % (35-45); Mean Corpuscular Hemoglobin 20.7 pg (27-33); Mean Corpuscular Hgb Conc 30.4 g/dL (31-36); Mean Corpuscular Volume 68.2 fL (80-97); Mean Platelet Volume 9.9 fL (7.5-11.2); Platelet Count 332 10^3/uL (150-450); Red Blood Count 2.88 10^6/uL (3.63-4.92); Red Cell Distribution Width 17.7 % (12-17); White Blood Count 12.3 10^3/uL (3.8-11.8)
[2023-11-11 21:08] LABS: Urine Appearance Turbid; Urine Bacteria 1+ /HPF (Absent); Urine Bilirubin 1+ (Negative); Urine Blood 1+ (Negative); Urine Color Yellow; Urine Glucose Negative (Negative); Urine Ketones 1+ (Negative); Urine Nitrite Negative (Negative); Urine Protein Trace (Negative); Urine Red Blood Cell 2+(6-10/hpf) /HPF (0-Trace); Urine Specific Gravity 1.021 (1.002-1.030); Urine Squamous Epithelial Cell Present /HPF (Absent); Urine Urobilinogen 1+ (Negative); Urine White Blood Cell 3+(>20/hpf) /HPF (0-Trace); Urine pH 5.5 (5.0-8.0)
[2023-11-11 21:14] LABS: AST 13 U/L (13-39); Anion Gap 8 mmol/L (2-16); Potassium 4.9 mmol/L (3.5-5.0)
[2023-11-11 21:45] LABS: ABS Basophils 0.1 10^3/uL (0.0-0.1); ABS Eosinophils 0.2 10^3/uL (0.0-0.5); ABS Monocytes 0.7 10^3/uL (0.0-0.9); ABS Neutrophils 9.7 10^3/uL (1.5-7.6); ABS Nucleated RBC 0.01 10^3/ul; Anisocytosis 1+; Burr Cells 1+; Eosinophil % 1.6 %; Hypochromasia 2+; Lymphocyte % 8.9 %; Microcytosis 3+; Polychromasia 1+; Schistocytes 1+
[2023-11-11 22:16] LABS: TSH Ultra Thyroid Stim Horm 1.61 mcIU/mL (0.34-5.60)
[2023-11-11 22:29] LABS: High Sensitivity Troponin 1 Hr 12 pg/mL (<15)
[2023-11-11 22:32] LABS: Magnesium 2.4 mg/dL (1.9-2.7)
[2023-11-12] MEDS ORDERED: oxyCODONE/Acetamin 5/325 mg TAB PO PRN (00:30)
[2023-11-12] MEDS ORDERED: Albuterol HFA INHALER 8 gm MDI INH PRN (00:30)
[2023-11-12 01:23] LABS: .Transferrin 265 mg/dL (203-362); Ferritin 9.5 ng/mL (11-307); Total Iron Binding Capacity 371 mcg/dL (250-450); Vitamin B12 372 pg/mL (180-914)
[2023-11-12 01:46] LABS: Folate > 20.00 ng/mL (5.90-24.80)
[2023-11-12 02:56] LABS: % Iron Saturation 8 % (15-55); Unsaturated Iron Binding 341 ug/dL
[2023-11-12 02:58] LABS: Iron 30 ug/dL (50-212)
[2023-11-12 03:01] LABS: LDH 187 U/L (140-271)
[2023-11-12 03:01] LABS: ABS Basophils 0.1 10^3/uL (0.0-0.1); ABS Lymphocytes 1.4 10^3/uL (1.0-4.8); ABS Monocytes 1.3 10^3/uL (0.0-0.9); ABS Neutrophils 9.8 10^3/uL (1.5-7.6); ABS Nucleated RBC 0.01 10^3/ul; Eosinophil % 0.1 %; Hematocrit 20.9 % (35-45); Hemoglobin 6.6 g/dL (11.5-14.3); Lymphocyte % 11.2 %; Mean Corpuscular Hgb Conc 31.5 g/dL (31-36); Mean Platelet Volume 9.5 fL (7.5-11.2); Platelet Count 271 10^3/uL (150-450); Red Blood Count 2.99 10^6/uL (3.63-4.92); Red Cell Distribution Width 18.8 % (12-17); White Blood Count 12.7 10^3/uL (3.8-11.8)
[2023-11-12] MEDS: Pantoprazole VIAL 40 MG VIAL IV SCH (03:20)
[2023-11-12] MEDS: Latanoprost 0.005% 2.5 ml BTL BOTH EYES SCH (03:20)
[2023-11-12] MEDS: Lactated Ringers 1000 ml BAG 1,000 ML IV ONE ×2 (03:59→11:44)
[2023-11-12] MEDS ORDERED: Norepinephrine 4 MG/250mL D5W 4,000 MCG/250 ML BAG IV ONE (04:13)
[2023-11-12 04:19] LABS: Calcium 8.1 mg/dL (8.6-10.3); Creatinine, Serum 2.22 mg/dL (0.51-0.95); Potassium 4.5 mmol/L (3.5-5.0); eGFR CKD-EPI 21.7 (>60)
[2023-11-12] MEDS: Prothrombin Complex Conc. DOSE = Units Factor IX (nine) IV SLOW PU ONE (04:33)
[2023-11-12] MEDS ORDERED: fentaNYL 100 mcg/2 ml 50 MCG/ML VIAL ONE ×2 (04:54→09:37)
[2023-11-12] MEDS: fentaNYL 100 mcg/2 ml 50 MCG/ML VIAL IV SLOW PU PRN (04:56)
[2023-11-12] MEDS ORDERED: Furosemide 40 mg/4 ml IV VIAL ONE (05:00)
[2023-11-12] MEDS: Furosemide 40 mg/4 ml IV VIAL IV ONE (05:04)
[2023-11-12] MEDS: Pantoprazole 80 mg in NS BAG 80 MG/250 ML BAG IV SCH (05:12)
[2023-11-12] MEDS: cefTRIAXone 1 gm/50 mL D5W 1 GM/50 ML BAG IV SCH (06:05)
[2023-11-12 06:16] LABS: Mean Platelet Volume 9.7 fL (7.5-11.2); Platelet Count 208 10^3/uL (150-450)
[2023-11-12 08:14] LABS: Hemoglobin 14.8 g/dL (11.5-14.3)
[2023-11-12] MEDS: cefTRIAXone 1 gm/50 mL D5W 1 GM/50 ML BAG IV ONE (08:58)
[2023-11-12] MEDS ORDERED: Flumazenil 0.5 mg/5 ml 0.1 MG/ML 5 ml VIAL IV PRN (09:07)
[2023-11-12] MEDS ORDERED: Naloxone 0.4 mg VIAL 0.4 mg/ml 1 ml VIAL IV PUSH PRN (09:07)
[2023-11-12] MEDS ORDERED: Midazolam 10 mg/10 ml VIAL 1 mg/ml 10 ml VIAL (10 mg) ONE (09:37)
[2023-11-12] MEDS: SPIRIVA Respimat (tiotropium) 2.5 mcg/inh Inhaler INH SCH (11:04)
[2023-11-12] MEDS: Ondansetron 4 mg VIAL 2 MG/ML 2 ml VIAL IV ONE (11:43)
[2023-11-12] MEDS: Lidocaine 2% JELLY 6 ML Topical TOPICAL ONE (11:43)
[2023-11-12] MEDS: Midazolam 10 mg/10 ml VIAL 1 mg/ml 10 ml VIAL (10 mg) IV SLOW PU ONE (11:43)
[2023-11-12] MEDS: Furosemide 40 mg/4 ml IV VIAL IV SLOW PU ONE (11:43)
[2023-11-12] MEDS: fentaNYL 100 mcg/2 ml 50 MCG/ML VIAL IV SLOW PU ONE (11:44)
[2023-11-12 12:21] LABS: Hematocrit 44.8 % (35-45); Hemoglobin 14.7 g/dL (11.5-14.3); Mean Corpuscular Hemoglobin 25.6 pg (27-33); Mean Corpuscular Hgb Conc 32.7 g/dL (31-36); Mean Corpuscular Volume 78.4 fL (80-97); Mean Platelet Volume 9.8 fL (7.5-11.2); Platelet Count 194 10^3/uL (150-450); Red Blood Count 5.72 10^6/uL (3.63-4.92); Red Cell Distribution Width 19.7 % (12-17); White Blood Count 17.2 10^3/uL (3.8-11.8)
[2023-11-12 13:08] LABS: ABS Basophils 0.1 10^3/uL (0.0-0.1); ABS Lymphocytes 1.1 10^3/uL (1.0-4.8); ABS Monocytes 1.4 10^3/uL (0.0-0.9); ABS Neutrophils 14.6 10^3/uL (1.5-7.6); ABS Nucleated RBC 0.04 10^3/ul; Lymphocyte % 6.6 %; Nucleated Red Blood Cells % 0.2 %/100WBC (0.0-0.8)
[2023-11-12] MEDS ORDERED: Pantoprazole VIAL 40 MG VIAL IV SCH (14:00)
[2023-11-13 06:32] LABS: ABS Basophils 0.1 10^3/uL (0.0-0.1); ABS Eosinophils 0.2 10^3/uL (0.0-0.5); ABS Lymphocytes 1.3 10^3/uL (1.0-4.8); ABS Monocytes 1.2 10^3/uL (0.0-0.9); ABS Neutrophils 8.4 10^3/uL (1.5-7.6); ABS Nucleated RBC 0.02 10^3/ul; Eosinophil % 2.1 %; Hematocrit 41.6 % (35-45); Hemoglobin 13.9 g/dL (11.5-14.3); Lymphocyte % 11.3 %; Mean Corpuscular Hemoglobin 26.1 pg (27-33); Mean Corpuscular Hgb Conc 33.4 g/dL (31-36); Mean Corpuscular Volume 78.2 fL (80-97); Mean Platelet Volume 9.8 fL (7.5-11.2); Nucleated Red Blood Cells % 0.2 %/100WBC (0.0-0.8); Platelet Count 173 10^3/uL (150-450); Red Blood Count 5.32 10^6/uL (3.63-4.92); Red Cell Distribution Width 19.5 % (12-17); White Blood Count 11.1 10^3/uL (3.8-11.8)
[2023-11-13 07:26] LABS: Albumin/Globulin Ratio 1.8 (1-3); Calcium 8.3 mg/dL (8.6-10.3); Creatinine, Serum 1.97 mg/dL (0.51-0.95); Globulin 1.7 g/dL (2-4); Potassium 3.7 mmol/L (3.5-5.0); Total Protein 4.7 g/dL (6.4-8.9); eGFR CKD-EPI 25.1 (>60)
[2023-11-13] MEDS: cefTRIAXone 1 gm/50 mL D5W 1 GM/50 ML BAG IV SCH (08:10)
[2023-11-13] MEDS: Potassium Chlor 20 meq TAB.ER PO ONE (12:51)
[2023-11-14 05:25] LABS: ABS Basophils 0.1 10^3/uL (0.0-0.1); ABS Eosinophils 0.3 10^3/uL (0.0-0.5); ABS Lymphocytes 1.4 10^3/uL (1.0-4.8); ABS Monocytes 1.2 10^3/uL (0.0-0.9); ABS Neutrophils 7.6 10^3/uL (1.5-7.6); ABS Nucleated RBC 0.02 10^3/ul; Eosinophil % 2.9 %; Hematocrit 41.9 % (35-45); Hemoglobin 14.1 g/dL (11.5-14.3); Lymphocyte % 12.8 %; Mean Corpuscular Hemoglobin 26.4 pg (27-33); Mean Corpuscular Hgb Conc 33.6 g/dL (31-36); Mean Corpuscular Volume 78.6 fL (80-97); Mean Platelet Volume 9.5 fL (7.5-11.2); Nucleated Red Blood Cells % 0.2 %/100WBC (0.0-0.8); Platelet Count 180 10^3/uL (150-450); Red Blood Count 5.33 10^6/uL (3.63-4.92); Red Cell Distribution Width 20.1 % (12-17); White Blood Count 10.6 10^3/uL (3.8-11.8)
[2023-11-14 06:01] LABS: Calcium 8.6 mg/dL (8.6-10.3); Creatinine, Serum 1.65 mg/dL (0.51-0.95); Potassium 3.8 mmol/L (3.5-5.0)
[2023-11-14] MEDS: oxyCODONE/Acetamin 5/325 mg TAB PO PRN (13:13)
[2023-11-15 06:15] LABS: ABS Basophils 0.1 10^3/uL (0.0-0.1); ABS Eosinophils 0.4 10^3/uL (0.0-0.5); ABS Lymphocytes 1.4 10^3/uL (1.0-4.8); ABS Neutrophils 6.8 10^3/uL (1.5-7.6); ABS Nucleated RBC 0.02 10^3/ul; Eosinophil % 4.2 %; Hemoglobin 14.6 g/dL (11.5-14.3); Lymphocyte % 14.7 %; Mean Corpuscular Hgb Conc 32.5 g/dL (31-36); Nucleated Red Blood Cells % 0.2 %/100WBC (0.0-0.8); Platelet Count 173 10^3/uL (150-450); Red Blood Count 5.63 10^6/uL (3.63-4.92); Red Cell Distribution Width 20.2 % (12-17); White Blood Count 9.7 10^3/uL (3.8-11.8)
[2023-11-15 07:43] LABS: Anion Gap 9 mmol/L (2-16); Blood Urea Nitrogen 30 mg/dL (6-24); CO2 Carbon Dioxide 24 mmol/L (22-32); Calcium 8.7 mg/dL (8.6-10.3); Chloride 110 mmol/L (101-111); Creatinine, Serum 1.52 mg/dL (0.51-0.95); Glucose 85 mg/dL (70-100); Sodium 143 mmol/L (135-145); eGFR CKD-EPI 34.2 (>60)
[2023-11-15] MEDS ORDERED: Senna TAB 8.6 mg TAB PO PRN (10:22)
[2023-11-15] MEDS: Polyethylene Glycol 3350 17 GM PACKET PO SCH (12:34)
[2023-11-15 13:00] LABS: Potassium, Whole Blood 4.3 mmol/L (3.4-4.5)
[2023-11-16 06:47] LABS: ABS Basophils 0.1 10^3/uL (0.0-0.1); ABS Eosinophils 0.4 10^3/uL (0.0-0.5); ABS Lymphocytes 1.1 10^3/uL (1.0-4.8); ABS Monocytes 1.1 10^3/uL (0.0-0.9); ABS Neutrophils 6.7 10^3/uL (1.5-7.6); ABS Nucleated RBC 0.01 10^3/ul; Eosinophil % 4.7 %; Hematocrit 41.1 % (35-45); Hemoglobin 13.9 g/dL (11.5-14.3); Lymphocyte % 11.3 %; Mean Corpuscular Hemoglobin 26.7 pg (27-33); Mean Corpuscular Hgb Conc 33.9 g/dL (31-36); Mean Corpuscular Volume 78.8 fL (80-97); Mean Platelet Volume 10.1 fL (7.5-11.2); Nucleated Red Blood Cells % 0.1 %/100WBC (0.0-0.8); Platelet Count 180 10^3/uL (150-450); Red Blood Count 5.21 10^6/uL (3.63-4.92); Red Cell Distribution Width 22.2 % (12-17); White Blood Count 9.4 10^3/uL (3.8-11.8)
[2023-11-16 07:02] LABS: Calcium 8.4 mg/dL (8.6-10.3); Creatinine, Serum 1.46 mg/dL (0.51-0.95); Potassium 3.9 mmol/L (3.5-5.0); eGFR CKD-EPI 35.9 (>60)
[2023-11-16] MEDS: Magnesium Hydroxide LIQ 30 ML UDC PO PRN (14:42)
[2023-11-17 07:28] LABS: Calcium 8.5 mg/dL (8.6-10.3); Creatinine, Serum 1.35 mg/dL (0.51-0.95); Potassium 4.5 mmol/L (3.5-5.0); eGFR CKD-EPI 39.5 (>60)
[2023-11-17 09:24] VITALS: BP 114/51
== END 2023-11-17 12:15 | DRG 377 ==
LOC: EDHOLD 19:31 → ED 19:31 → SUATTDRO 11-12 00:06 → OBSVTOIN 11-12 00:06 → ICU 11-12 05:18 → MED 11-12 23:32
PROVIDERS: ADMIT Hospitalist; ATTEND Internal Medicine